=== PATIENT | female | born 1990 | race African-American/Black ===

== ENCOUNTER 2017-05-24 09:40 | Emergency (ER) | payer OTHER ==
[~2017-05-24] VITALS: Ht 157.5 cm; Wt 63.5 kg
[2017-05-24 09:52] VITALS: BP 130/69
[2017-05-24] MEDS ORDERED: IBUPROFEN 800 MG TABLET. PO ONE (10:15)
[2017-05-24 10:38] LABS: BILIRUBIN,URINE NEGATIVE (NEG); GLUCOSE,URINE NEGATIVE (NEG); NITRITE,URINE NEGATIVE (NEG); PROTEIN,URINE NEGATIVE (NEG-TRACE)
[2017-05-24 11:05] LABS: BACTERIA,URINE FEW /HPF (0-FEW); RBC,URINE OCC /HPF (0-2); SQUAMOUS EPITHELIAL CELL,UR FEW /LPF
[2017-05-24] MEDS ORDERED: METR500T PO (11:30)
--- NOTE | 2017-05-24 11:30 | PHYS DOC ---
Past Medical History Past Medical History: No Pertinent History Past Surgical History: No Surgical History Alcohol Use: None Drug Use: None Adult General Chief Complaint Chief Complaint: VAGINAL BLEEDING [facility] HPI Patient is a 27 year old female with no significant medical history who presents today complaining of her Implanon control which was placed in August 2016 to be causing her dizziness, heavy vaginal bleeding, and pain throughout her body. Patient states she has followed up with her [employer]ER for this multiple times. She states her [employer]TER PL[employer]ER had recommended she wait for a while before its removed. She states she has an appointment June 01, 2017 to have it removed. She states she cannot wait until then. Patient states she has used 2 feminine pads since last night. She states her cycles have been on and off since she has had this Implanon. Review of Systems Review of Systems Constitutional: Denies fever or chills [] Eyes: Denies change in visual acuity, redness, or eye pain [] HENT: Denies nasal congestion or sore throat [] Respiratory: Denies cough or shortness of breath [] Cardiovascular: No additional information not addressed in HPI [] GI: Denies abdominal pain, nausea, vomiting, bloody stools or diarrhea [] : Denies dysuria or hematuria [] Musculoskeletal: Denies back pain or joint pain [] Integument: Denies rash or skin lesions [] Neurologic: Denies headache, focal weakness or sensory changes [] Current Medications Current Medications Current Medications Medications (Trade) Dose Ordered Sig/Mavis Start Time Stop Time Status Last Admin Dose Admin Ibuprofen (Motrin) 800 mg 1X ONCE 05/24/17 10:15 05/24/17 10:17 DC 05/24/17 10:52 800 MG Allergies Allergies Allergies Coded Allergies Type Severity Reaction Last Updated Verified No Known Drug Allergies 05/24/17 No Physical Exam Physical Exam Constitutional: Well developed, well nourished, no acute distress, non-toxic appearance. [] HENT: Normocephalic, atraumatic, bilateral external ears normal, oropharynx moist, no oral exudates, nose normal. [] Eyes: PERRLA, EOMI, conjunctiva normal, no discharge. [] Neck: Normal range of motion, no tenderness, supple, no stridor. [] Cardiovascular:Heart rate regular rhythm, no murmur [] Lungs & Thorax: Bilateral breath sounds clear to auscultation [] Abdomen: Bowel sounds normal, soft, no tenderness, no masses, no pulsatile masses. [] Pelvic exam External pelvic appears normal, cervix is closed, no CMT, trace amount of bright red blood in the vaginal vault. No adnexal tenderness. Skin: Warm, dry, no erythema, no rash. [] Back: No tenderness, no CVA tenderness. [] Extremities: No tenderness, no cyanosis, no clubbing, ROM intact, no edema. [] Neurologic: Alert and oriented X 3, normal motor function, normal sensory function, no focal deficits noted. [] Psychologic: Affect normal, judgement normal, mood normal. [] Current Patient Data Vital Signs Vital Signs Date Time Temp Pulse Resp B/P (MAP) Pulse Ox O2 Delivery O2 Flow Rate FiO2 05/24/17 09:52 98.6 91 130/69 (89) 99 Room Air 98.6 Lab Values Laboratory Tests Test 05/24/17 10:00 05/24/17 10:20 05/24/17 10:39 Urine Collection Type Unknown Urine Color Yellow Urine Clarity Clear Urine pH 6.0 Urine Specific [place] 1.025 Urine Protein Negative mg/dL (NEG-TRACE) Urine Glucose (UA) Negative mg/dL (NEG) Urine Ketones (Stick) Negative mg/dL (NEG) Urine Blood Large (NEG) Urine Nitrite Negative (NEG) Urine Bilirubin Negative (NEG) Urine Urobilinogen Dipstick 1.0 mg/dL (0.2 mg/dL) Urine Leukocyte Esterase Negative (NEG) Urine RBC Occ /HPF (0-2) Urine WBC 1-4 /HPF (0-4) Urine Squamous Epithelial Cells Few /LPF Urine Bacteria Few /HPF (0-FEW) Urine Mucus Marked /LPF POC Urine HCG, Qualitative Hcg negative (Negative) POC Hemoglobin 15.0 g/dL (12-15) POC Hematocrit 44 % (36-40) H POC Sodium 141 mmol/L (135-145) POC Potassium 4.0 mmol/L (3.5-5.0) POC Chloride 105 mmol/L (98-110) POC Total CO2 26 mmol/L (23-32) Anion Gap 15 mmol/L (6-14) H POC Blood Urea Nitrogen 10 mg/dL (8-26) POC Creatinine 0.8 mg/dL (0.5-1.4) Glucose Level 87 mg/dL (70-99) POC Ionized Calcium ([place]) 1.21 mmol/L (1.13-1.32) Laboratory Tests 05/24/17 10:39 Microbiology 05/24/17 Wet Prep - Final, Complete EKG EKG [] Radiology/Procedures Radiology/Procedures [] Course & Med Decision Making Course & Med Decision Making Pertinent Labs and Imaging studies reviewed. (See chart for details) Patient is in the ED complaining of dysfunctional uterine bleeding, dizziness, and pain throughout her body that began in August 2016 after she had an Implanon placed. She would like the Implanon removed. She does have an appointment with her OB on June 01 to have it removed. Her hemoglobin and hematocrit and normal. Her lab work is normal. Wet prep was positive for BV. Discharged with Flagyl and instructed to follow-up with her [employer]ER for Implanon removal. She was provided return precautions and discharged in stable condition. Negative urine hcg. Dragon Disclaimer Dragon Disclaimer This electronic medical record was generated, in whole or in part, using a voice recognition dictation system. Departure Departure Impression: Primary Impression: Implanon in place Additional Impressions: Dysfunctional uterine bleeding Bacterial vaginosis Disposition: HOME, SELF-CARE Condition: STABLE Referrals: NO PCP (PCP) Follow-up with your [employer] on June 01, 2017 Patient Instructions: Bacterial Vaginosis, Uterine Bleeding, Dysfunctional Additional Instructions: You were seen with Implanon concern. We do not remove this device in the emergency room. You have an appointment with your [employer]ER on June 01 follow up with your doctor. Take ibuprofen for your pain. You have bacterial vaginosis , this is not an STD. Take the prescribed antibiotics to clear this infection. Scripts Metronidazole (FLAGYL) 500 Mg Tablet 1 TAB PO BID, #14 TAB Prov: KARI CONNER APRN 05/24/17 Problem Qualifiers KARI CONNER APRN May 24, 2017 11:30
== END 2017-05-24 11:45 | disposition home or self-care (01) ==
LOC: ER 09:40
DX: N93.8 Other specified abnormal uterine and vaginal bleeding (principal); N76.0 Acute vaginitis; Z97.5 Presence of (intrauterine) contraceptive device
CPT/HCPCS: 80047; 81001; 81025; 87491; 87591; 99284; Q0111; 36415